=== PATIENT | male | born 1970 | race Two or more races ===

== ENCOUNTER 2019-09-13 09:22 | Outpatient (CLI) | payer OTHER | END 2019-09-13 09:29 | disposition home or self-care (01) | LOC: SONOGRAMA 09:22 → MAMO-SONO 10:15 | DX: R22.9 Localized swelling, mass and lump, unspecified (principal) ==

== ENCOUNTER 2020-11-01 13:46 | Outpatient (CLI) | payer OTHER | END 2020-11-01 13:56 | disposition home or self-care (01) | LOC: SONOGRAMA 13:46 → MAMO-SONO 14:15 | DX: R19.09 Other intra-abdominal and pelvic swelling, mass and lump (principal) ==